=== PATIENT | male | born 1995 | race Caucasian/White ===

== ENCOUNTER 2018-03-10 20:09 | Emergency (ER) | payer BC ==
[~2018-03-10] VITALS: Ht 170.2 cm; Wt 68.0 kg
[2018-03-10 20:20] VITALS: BP_SYST 150
--- NOTE | 2018-03-10 20:23 | NUR ---
Pt AAOx4 ambulated into ED c/o 10/10 L flank pain, urgency, frequency, and dysuria since 1800 today accompanying vomiting x 15 min ago while awaiting placement to bed. Pt deneis taking any medication for relief. Pt skin pale and dry. Guarding abdomen. Pt attempted multiple times to give urine sample with no success. No other injuries/complaints per pt/noted. Mother at bedsideWill continue to monitor.
--- NOTE | 2018-03-10 20:25 | NUR ---
ER Dr. Alberto at bedside examining patient.
--- NOTE | 2018-03-10 20:30 | NUR ---
# 20 gauge angiocath placed to L AC. Use of asceptic technique. Opsite placed over site. Blood return noted. Blood for lab drawn from site. Flushed with 10 cc of normal saline. No evidence of infiltration noted. Patient tolerated well.
[2018-03-10] MEDS ORDERED: NACL 0.9% 1,000 ML IV ONE (20:45)
[2018-03-10] MEDS ORDERED: KETOROLAC TROMETHAMINE 30 MG VIAL IVP ONE (20:45)
--- NOTE | 2018-03-10 20:46 | NUR ---
Pt ambulated to radiology in stable condition.
--- NOTE | 2018-03-10 20:50 | NUR ---
Pt returned from radiology in stable condition.
[2018-03-10 20:52] LABS: BASOPHILS # (AUTO) 0.2 K/uL (0.0-0.2); BASOPHILS % (AUTO) 1.2 % (0.0-2.0); EOSINOPHILS # (AUTO) 0.1 K/uL (0.0-0.4); EOSINOPHILS % (AUTO) 0.6 % (0.0-4.0); HEMATOCRIT 45.7 % (36-54); HEMOGLOBIN 15.3 g/dL (14.0-18.0); LYMPHOCYTES # (AUTO) 2.2 K/uL (1.0-5.5); LYMPHOCYTES % (AUTO) 16.1 % (20.5-51.5); MEAN CORPUSCULAR HEMOGLOBIN 30 pg (27-31); MEAN CORPUSCULAR HGB CONC 34 % (32-36); MEAN CORPUSCULAR VOLUME 89 fL (79.0-98.0); MONOCYTES # (AUTO) 0.5 K/uL (0.0-1.0); MONOCYTES % (AUTO) 3.8 % (1.7-9.3); NEUTROPHILS # (AUTO) 10.4 K/uL (1.8-7.7); NEUTROPHILS % (AUTO) 78.3 % (40.0-70.0); PLATELET COUNT (AUTO) 218 K/uL (130-430); RED BLOOD CELL COUNT(AUTO) 5.13 MIL/uL (4.2-6.2); RED CELL DISTRIBUTION WIDTH 11.9 % (9.0-15.0); WHITE BLOOD COUNT (AUTO) 13.4 K/uL (4.8-10.8)
[2018-03-10 21:10] LABS: CALCIUM 9.2 mg/dL (8.4-11.0); CREATININE 1.06 mg/dL (0.55-1.30); POTASSIUM 3.7 mmol/L (3.5-5.1)
[2018-03-10 21:15] LABS: ALBUMIN 4.5 g/dL (3.4-4.8); TOTAL BILIRUBIN 0.6 mg/dL (0.0-1.0)
--- NOTE | 2018-03-10 21:18 | NUR ---
Pt ambulated to bathroom with steady gait
[2018-03-10 21:38] LABS: BILIRUBIN,URINE NEGATIVE (NEGATIVE); BLOOD, URINE NEGATIVE (NEGATIVE); CLARITY/URINE SL HAZY (CLEAR); COLOR,URINE YELLOW (YELLOW); GLUCOSE,URINE NEGATIVE (NEGATIVE); KETONES,URINE TRACE (NEGATIVE); LEUKOCYTE ESTERASE ,URINE NEGATIVE (NEGATIVE); NITRITE, URINE NEGATIVE (NEGATIVE); PH,URINE 5.5 (5.0-8.0); PROTEIN URINE NEGATIVE (NEGATIVE); UROBILINOGEN,URINE 0.2 (0.2-1.0)
--- NOTE | 2018-03-10 21:48 | NUR ---
Pt resting comfortably in bed with no signs of distress.
--- NOTE | 2018-03-10 22:32 | NUR ---
Pt reports [address] pain to L flank. Dr. Alberto notified. Per Dr. Alberto, he would like to wait for CT results before ordering pain medication.
[2018-03-10] MEDS ORDERED: MORPHINE 4 MG/ML INJ. SYRINGE IVP ONE (23:00)
--- NOTE | 2018-03-10 23:08 | NUR ---
Medication administered. Pt tolerated well. No adverse reactions noted
--- NOTE | 2018-03-10 23:10 | NUR ---
Patient given written and verbal discharge instructions and verbalizes understanding. ER MD discussed with patient the results and treatment provided. Patient in stable condition. ID arm band removed. IV catheter removed intact and dressing applied, no active bleeding. Rx of Flomax and [place] given. Patient educated on pain management and to follow up with PMD. Pain Scale 0/10. Opportunity for questions provided and answered. Medication side effect fact sheet provided.
[2018-03-10 23:48] VITALS: BP_SYST 134
== END 2018-03-10 23:10 | disposition home or self-care (01) ==
LOC: SED 20:09
DX: N20.0 Calculus of kidney (principal); N20.1 Calculus of ureter; R03.0 Elevated blood-pressure reading, without diagnosis of hypertension
CPT/HCPCS: 36415; 74021; 74176; 80053; 81003; 83690; 85025; 96374; 96375; 99285; J1885; J2270; J7030